=== PATIENT | female | born 1980 ===

== ENCOUNTER 2016-08-12 10:54 | Outpatient (CLI) | payer OTHER ==
--- NOTE | 2016-08-12 11:57 | DIAGNOSTIC IMAGING REPORT ---
PROCEDURE: CT ABD/PELVIS WITH CONTRAST CLINICAL INDICATION: Periumbilical pain, nausea and vomiting. Initial encounter TECHNIQUE: 1 ml of Isovue 300 were injected intravenously and axial images were obtained of the entire abdomen and pelvis with sagittal and coronal reformations. COMPARISON: CT abdomen/pelvis 08/26/2011 FINDINGS: ABDOMEN: Lung base are clear. Heart size is normal. Liver, gallbladder, pancreas, spleen, adrenal glands, kidneys and abdominal aorta are normal. There is fluid in the ascending colon. There is no retroperitoneal adenopathy. PELVIS: Normal appendix. Uterus, adnexa and bladder are normal. No pelvic mass, free fluid or inflammatory changes. Mild degenerative changes of the spine. IMPRESSION: 1. Findings suggestive of enterocolitis 2. Results discussed with CINDY Rodriguez All CT scans at this facility use dose modulation, iterative reconstruction, and/or weight-based dosing when appropriate to reduce radiation dose to as low as reasonably achievable.
== END 2016-08-12 23:00 ==
LOC: CT SRH 10:54
DX: R10.33 Periumbilical pain (principal)